=== PATIENT | female | born 1995 | race Two or more races ===

== ENCOUNTER 2020-03-14 00:53 | Inpatient (IN) | payer OTHER ==
[~2020-03-14] VITALS: Ht 147.3 cm; Wt 2.3 kg
[2020-03-14] MEDS ORDERED: PRENATAL TABLE1 EAC1 PO (01:38)
[2020-03-14] MEDS ORDERED: INFED50 MG/ML IJ (01:40)
== END 2020-03-18 14:04 | DRG 785 ==
LOC: OBS/DEL 00:53 → OB/GYN 15:50 → LDR 15:50 → OB/GYN 03-15 21:58
PROVIDERS: ADMIT Obstetrics & Gynecology; ATTEND Obstetrics & Gynecology
PROC: 4A0HXFZ Measurement of Products of Conception, Cardiac Rhythm, External Approach (ICD-10-PCS; 2020-03-14)
PROC: 0UT70ZZ Resection of Bilateral Fallopian Tubes, Open Approach (ICD-10-PCS; 2020-03-15)
PROC: 10D00Z1 Extraction of Products of Conception, Low, Open Approach (ICD-10-PCS; principal; 2020-03-15 16:00)
DX: O60.14X0 Preterm labor third trimester with preterm delivery third trimester, not applicable or unspecified (principal); O62.0 Primary inadequate contractions; O99.02 Anemia complicating childbirth; D64.9 Anemia, unspecified; Z3A.36 36 weeks gestation of pregnancy; Z37.0 Single live birth